=== PATIENT | female | born 1990 | race Hispanic/Latino ===

== ENCOUNTER 2018-01-27 16:38 | Emergency (ER) | payer MEDICAID ==
[2018-01-27] MEDS ORDERED: ALBUTEROL SULFATE 0.083% 2.5 MG/3 ML INH IH ONE (17:18)
== END 2018-01-27 18:15 | disposition home or self-care (01) ==
LOC: EDH 16:38
DX: J10.1 Influenza due to other identified influenza virus with other respiratory manifestations (principal); Z88.0 Allergy status to penicillin
CPT/HCPCS: 87804; 94640

== ENCOUNTER 2019-02-11 08:33 | Emergency (ER) | payer MEDICAID, OTHER ==
[~2019-02-11 08:33] MED LIST: FERR-82 PO; PREN-66 PO
[2019-02-11] MEDS ORDERED: ACETAMINOPHEN EXTRA STRENGTH 500 MG TABLET ONE (10:05)
[2019-02-11] MEDS ORDERED: LIDOCAINE HCL 2% 20ML ONE (10:05)
[2019-02-11] MEDS ORDERED: SULFAMETHOX-TMP DS 800/160 TAB ONE (10:05)
== END 2019-02-11 11:02 | disposition home or self-care (01) ==
LOC: EDH 08:33
DX: L02.413 Cutaneous abscess of right upper limb (principal); L03.113 Cellulitis of right upper limb; Z88.0 Allergy status to penicillin
CPT/HCPCS: 10061; 81025; 99284; J3490

== ENCOUNTER 2023-03-14 21:08 | Emergency (ER) | payer OTHER ==
[~2023-03-14] VITALS: Ht 167.6 cm; Wt 109.8 kg
[2023-03-14] MEDS ORDERED: CLIN-141 PO (22:59)
[2023-03-14] MEDS ORDERED: IBUP-2070 PO (22:59)
[2023-03-14] MEDS ORDERED: IBUPROFEN 600 MG TABLET PO ONE (23:00)
[2023-03-14] MEDS ORDERED: CLINDAMYCIN 150 MG CAP PO ONE (23:00)
[2023-03-14 23:27] VITALS: BP 124/76; PULSE 78; RESP 20; O2SAT 99
== END 2023-03-14 23:35 | disposition home or self-care (01) ==
LOC: EDH 21:08
DX: K02.9 Dental caries, unspecified (principal); D64.9 Anemia, unspecified; Z79.899 Other long term (current) drug therapy

== ENCOUNTER 2023-05-07 09:46 | Emergency (ER) | payer OTHER ==
[~2023-05-07] VITALS: Ht 167.6 cm; Wt 102.1 kg
[~2023-05-07 09:46] MED LIST changes: +CLIN-141 PO; +IBUP-2070 PO
[2023-05-07] MEDS ORDERED: KETOROLAC 30MG VIAL (30MG/ML) IVP ONE (10:00)
[2023-05-07] MEDS ORDERED: 0.9%NACL 1000ML 1,000 ML IV ONE (10:00)
[2023-05-07] MEDS ORDERED: PHENAZOPYRIDINE HCL 200 MG TABLET PO ONE (10:00)
[2023-05-07 10:10] LABS: BASOPHILS # (AUTO) 0.05 K/uL (0.00-0.20); BASOPHILS % (AUTO) 0.4 % (0.0-5.0); EOSINOPHILS # (AUTO) 0.45 K/uL (0.00-0.70); HEMATOCRIT 34.9 % (36-48); IMMATURE GRANULOCYTE ABSOLUTE 0.05 K/uL (0-1); LYMPHOCYTES % (AUTO) 17.8 % (21.0-51.0); MEAN CORPUSCULAR HEMOGLOBIN 17.1 pg (27.0-33.0); MEAN CORPUSCULAR HGB CONC 27.5 g/dL (32.0-36.0); MONOCYTES # (AUTO) 0.6 K/uL (0.1-1.0); MONOCYTES % (AUTO) 5.4 % (3.0-13.0); NEUTROPHILS # (AUTO) 8.2 K/uL (1.8-7.7); PLATELET COUNT (AUTO) 499 K/uL (130-400); RED BLOOD CELL COUNT(AUTO) 5.63 MIL/uL (4.00-5.50); RED CELL DISTRIBUTION WIDTH 19.8 % (11.0-15.5); WHITE BLOOD COUNT (AUTO) 11.4 K/uL (4.8-10.8)
[2023-05-07 10:18] LABS: CREATININE 0.6 mg/dL (0.5-1.5); POTASSIUM 3.4 mmol/L (3.5-5.1)
[2023-05-07 10:23] LABS: ALBUMIN 3.6 g/dL (3.5-5.0); BILIRUBIN,TOTAL 0.2 mg/dL (0.2-1.0); TOTAL PROTEIN, SERUM 7.9 g/dL (6.0-8.3)
[2023-05-07] MEDS ORDERED: POTASSIUM BICARB/CIT AC 25 MEQ TABLET.EFF PO ONE (10:30)
[2023-05-07 10:43] LABS: APPEARANCE,URINE CLEAR (CLEAR); BILIRUBIN,URINE NEGATIVE (NEGATIVE); COLOR,URINE COLORLESS (YELLOW); GLUCOSE, URINE (UA) NEGATIVE (NEGATIVE); KETONES,URINE NEGATIVE (NEGATIVE); LEUKOCYTE ESTERASE ,URINE 75 Leu/uL (NEGATIVE); NITRATE,URINE NEGATIVE (NEGATIVE); OCCULT BLOOD,URINE MODERATE (NEGATIVE); PROTEIN,URINE 20 mg/dL (NEGATIVE); UROBILINOGEN,URINE 0.2 mg/dL (0.2-1.0)
[2023-05-07 10:51] LABS: ADD UA MICROSCOPIC YES
[2023-05-07 10:56] LABS: HCG,QUALITATIVE URINE NEGATIVE (NEGATIVE)
[2023-05-07 11:30] LABS: BACTERIA,URINE Few /HPF (None Seen); RBC,URINE 0-1 /HPF (0-1); WBC,URINE 0-1 /HPF (0-1)
[2023-05-07] MEDS ORDERED: CEFTRIAXONE 1G VIAL IVPB ONE (12:30)
[2023-05-07 12:53] VITALS: BP 114/69; PULSE 79; RESP 17; O2SAT 97
[2023-05-07] MEDS ORDERED: IBUP-2070 PO (13:03)
[2023-05-07] MEDS ORDERED: TAMS-1 PO (13:03)
[2023-05-07] MEDS ORDERED: MACR100 PO (13:03)
== END 2023-05-07 13:47 | disposition home or self-care (01) ==
LOC: EDH 09:46
DX: N20.0 Calculus of kidney (principal); N39.0 Urinary tract infection, site not specified; R35.0 Frequency of micturition; Z79.899 Other long term (current) drug therapy; Z88.0 Allergy status to penicillin
CPT/HCPCS: 99285; 74176; 96365; 96361; 96375; 80053; 85025; 87077; 87088; 87186; 81001; 81025; 36415; J7030; J0696; J1885